=== PATIENT | male | born 1940 | race Caucasian/White ===

== ENCOUNTER → 2017-09-07 09:16 | Outpatient (CLI) | payer OTHER, MEDICARE, SELFPAY ==
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
== END ==
PROVIDERS: Family Provider Emergency Medicine; PCP Emergency Medicine; Visit Provider Emergency Medicine
DX: M54.2 Cervicalgia (principal)
CPT/HCPCS: 72050; 72141; 76376

== ENCOUNTER → 2017-09-26 09:34 | Outpatient (POV) | payer OTHER, MEDICARE, SELFPAY ==
[2017-09-26 09:50] VITALS: BP 114/47; PULSE 56; RESP 20; TEMP 36.7; O2SAT 98
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
== END ==
PROVIDERS: Family Provider Emergency Medicine; PCP Emergency Medicine; Visit Provider Clinical Nurse Specialist Family Health
DX: M50.30 Other cervical disc degeneration, unspecified cervical region (principal); M47.812 Spondylosis without myelopathy or radiculopathy, cervical region
CPT/HCPCS: 99202

== ENCOUNTER → 2017-11-01 09:46 | Outpatient (POV) | payer MEDICARE, OTHER, SELFPAY ==
[2017-11-01 10:12] VITALS: BP 106/63; PULSE 55; RESP 20; O2SAT 99; BMI 24.3
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
== END ==
PROVIDERS: Family Provider Emergency Medicine; PCP Emergency Medicine; Visit Provider Clinical Nurse Specialist Family Health
DX: M47.812 Spondylosis without myelopathy or radiculopathy, cervical region (principal)
CPT/HCPCS: 99212

== ENCOUNTER → 2017-11-08 11:35 | Outpatient (CLI) | payer MEDICARE, OTHER, SELFPAY ==
--- NOTE | 2017-11-08 11:38 | US_ITS ---
US kidney retroperitoneal comp HISTORY: ITS.REASON: RENAL CYST ORDERING PHYSICIAN: Jose De Los Santos MD PATIENT AGE: 77 years Comparison: 01/20/2017 FINDINGS: RIGHT KIDNEY:Right kidney measures 11 x 7 x 7 cm. And exophytic cyst is present along the lower pole at 17 mm there is contains a central septation. This is similar in size compared to the CT scan of 01/20/2017. No hydronephrosis LEFT KIDNEY:Left kidney measures 13 x 6 x 9 cm. Parapelvic renal cysts are present on the left measuring approximately 6 cm. There is a 5 center cyst along the lower pole on the left. These findings are similar when compared to the CT scan. No hydronephrosis. OTHER FINDINGS: No other pertinent findings IMPRESSION: Bilateral renal cysts, no hydronephrosis and no significant change from 01/20/2017
== END ==
PROVIDERS: Family Provider Emergency Medicine; PCP Emergency Medicine; Visit Provider Urology
DX: D30.01 Benign neoplasm of right kidney (principal); D30.02 Benign neoplasm of left kidney
CPT/HCPCS: 76770

== ENCOUNTER 2017-11-16 09:00 | Outpatient (RCR) | payer MEDICARE, OTHER, SELFPAY | END 2017-11-16 09:01 | disposition home or self-care (01) | LOC: PT 09:00 | PROVIDERS: Family Provider Emergency Medicine; PCP Emergency Medicine; Visit Provider Anesthesiology | DX: M54.2 Cervicalgia (principal) | CPT/HCPCS: 97012; 97014; 97035; 97110; 97140; 97163; G0283 ==

== ENCOUNTER → 2018-02-09 08:43 | Outpatient (POV) | payer MEDICARE, OTHER, SELFPAY | PROVIDERS: Visit Provider Dermatology | DX: Z00.00 Encounter for general adult medical examination without abnormal findings (principal) ==

== ENCOUNTER → 2018-02-14 09:59 | Outpatient (CLI) | payer MEDICARE, OTHER, SELFPAY ==
--- NOTE | 2018-02-14 10:04 | XR_ITS ---
XR chest 2V HISTORY: ITS.REASON: dyspnea ORDERING PHYSICIAN: Albin Ricks MD PATIENT AGE: 77 years COMPARISON: 08/11/2015 FINDINGS: The cardiomediastinal silhouette and pulmonary vascularity are within normal limits. The lungs are clear without infiltrates, suspicious nodules, or pleural effusions. No acute bony abnormalities. IMPRESSION: Negative chest, no acute finding
== END ==
PROVIDERS: Family Provider Emergency Medicine; PCP Emergency Medicine; Visit Provider Internal Medicine
DX: E78.5 Hyperlipidemia, unspecified (principal); I10 Essential (primary) hypertension; R00.1 Bradycardia, unspecified; R06.00 Dyspnea, unspecified; R42 Dizziness and giddiness; R94.31 Abnormal electrocardiogram [ECG] [EKG]
CPT/HCPCS: 71046

== ENCOUNTER → 2018-02-21 07:36 | Outpatient (CLI) | payer MEDICARE, OTHER, SELFPAY ==
--- NOTE | 2018-02-21 07:39 | CA_ITS ---
PROCEDURE: 2-D M-mode and color Doppler study INDICATIONS FOR THE TEST: Chest pain COPD Heart Murmur Tobacco Smoking+ Palpitations Fatigue Syncope Edema Hypertension+Diabetes Mellitus Rheumatic Fever SOB+NETTLES Obesity Hyperlipidemia+ Family History HD Additional History abn ekg, dizziness PATIENT INFORMATION HEIGHT: 70 WEIGHT:170 GENDER: Male B/P:133/65 2-D/M-MODE INTERPRETATION: 2-D MEASUREMENTS OBSERVED VALUES IN CMS Right Ventricular Dimension (RVDd) 1.9 Interventricular Septum (Thickness)(IVsd) 1.0 Left Ventricular Internal Dimensions(LVIDd) 5.6 Left Ventricular Posterior Wall (Thickness)(LVPWd) 0.8 Aortic Root 3.7 Aortic Cusp Separation 1.9 Left Atrial Dimensions (LAD) 3.5 2D 1. Left atrium is mildly enlarged, left ventricle is normal size, mild concentric left ventricular hypertrophy, visually estimated ejection fraction of 55% with no regional wall motion abnormality. 2. The right atrium and right ventricle are normal size and contractility. 3. The aortic valve is minimally thickened and fibrosed. 4. The mitral and tricuspid valve leaflets are minimally thickened 5. The pulmonic valve is poorly visualized. 6. No significant pericardial effusion noted. DOPPLER INTERROGATION: Doppler interrogation of the aortic, mitral and tricuspid valvular presence of mild mitral and tricuspid regurgitation, tricuspid regurgitation jet velocity is insufficient for calculation of the right ventricular systolic pressure, grade 1 diastolic dysfunction seen with tissue Doppler evidence of raised left atrial pressure. Mild aortic insufficiency is also seen. CONCLUSION: 1. Mildly enlarged left atrium, normal left ventricular size, visually estimated ejection fraction 55% with no regional wall motion abnormality, grade 1 diastolic dysfunction seen with tissue Doppler evidence of raised left atrial pressure. 2. Mild aortic, mild mitral and tricuspid regurgitation 3. No significant pericardial effusion noted.
[2018-02-21 11:49] LABS: Bilirubin,Direct 0.1 mg/dL (0.0-0.2); Total Protein,Serum 6.5 gm/dL (6.4-8.2)
[2018-02-21 12:13] LABS: Alanine Aminotransferase 23 U/L (12-78); Albumin Level 3.3 gm/dL (3.4-5.0); Alkaline Phosphatase 65 U/L (46-116); Aspartate Amino Transferase 15 U/L (15-37); Bilirubin,Indirect 0.3 mg/dL (0.0-0.9); Bilirubin,Total 0.4 mg/dL (0.2-1.0); Chol/HDL Ratio 2.6 (1-3.5); Cholesterol 156 mg/dL (140-200); HDL Cholesterol 61 mg/dL (27-67); LDL Cholesterol 84 mg/dL (0-130); Triglycerides 55 mg/dL (30-200); VLDL Cholesterol 11 mg/dL (0-40)
== END ==
PROVIDERS: PCP Emergency Medicine; Visit Provider Internal Medicine
DX: R94.31 Abnormal electrocardiogram [ECG] [EKG] (principal); E78.5 Hyperlipidemia, unspecified; I10 Essential (primary) hypertension; R00.1 Bradycardia, unspecified; R06.00 Dyspnea, unspecified; R42 Dizziness and giddiness
CPT/HCPCS: 36415; 80061; 80076; 93306

== ENCOUNTER → 2018-10-18 06:18 | Outpatient (CLI) | payer MEDICARE, OTHER, SELFPAY ==
--- NOTE | 2018-10-18 06:23 | NM_ITS ---
SPECT MYOCARDIAL PERFUSION SCAN, REST AND STRESS: EXERCISE STRESS: [facility] REVIEW QGS EF AND WALL MOTION EVALUATION: QPS - PERFUSION EVALUATION: HISTORY: SOA PROCEDURE: Rest imaging performed after administration of10.24 millicuries Tc MIBI. Dose administered at6:30 a.m., with imaging thereafter. Stress imaging was then performed following9 minutes 48 seconds of exercise stress. The patient achieved a heart [id number] with projected heart rate of122 . Resting BP156/77 with stress 194/74. At maximum exercise stress,32.2 millicuries Tc MIBI administered at8:20 a.m. with [id number] minutes thereafter. FINDINGS: Perfusion Evaluation: The single slice spect images as well as the [facility] bull's-eye data summary were reviewed. Wall Motion and Ejection Fraction Evaluation: Gated SPECT review and analysis used to evaluate these features. There is a 49 % left ventricular ejection fraction. There seems to be good wall motion Uniform myocardial activity at both stress and rest gated images calculated ejection fraction of 49% with normal wall motion IMPRESSION: No scintigraphic evidence of exercise-induced myocardial ischemia with normal ejection fraction and normal wall motion
--- NOTE | 2018-10-18 07:04 | HMH.ITSHM ---
Current Home Medications as stated by this patient Giancarlo Rodriguez or c s s representative. []ALIGN ASA ATORVASTATIN FIBERCON GLUCOSAMINE IBEROGAST IRON L-THYROXIN MAGNESIUM PRILOSEC
[2018-10-18 10:35] LABS: Basophils % 0.6 % (0.1-2.0); Eosinophils # 0.2 K/mm3 (0.0-0.4); Eosinophils % 3.1 % (0.1-12.0); Hematocrit 41.3 % (42.0-52.0); Hemoglobin 13.5 g/dL (14.1-18.0); Lymphocytes # 1.8 K/mm3 (0.7-4.5); Lymphocytes % 33.3 % (10-50); Mean Corpuscular HGB Conc 32.7 g/dL (31.8-35.4); Mean Corpuscular Hemoglobin 30.2 pg (27.0-31.2); Mean Corpuscular Volume 92.4 fl (80-94); Mean Platelet Volume 7.9 fl (7.4-10.4); Monocytes # 0.4 K/mm3 (0.1-1.0); Monocytes % 7.1 % (1.7-9.3); Neutrophils % 55.9 % (37.0-80.0); Platelet Count 215 K/mm3 (142-424); Red Blood Count 4.47 M/mm3 (4.60-6.20); Red Cell Distribution Width 13.6 % (11.5-17.5); White Blood Count 5.3 K/mm3 (4.8-10.8)
[2018-10-18 10:44] LABS: Alanine Aminotransferase 32 U/L (12-78); Albumin Level 3.7 gm/dL (3.4-5.0); Alkaline Phosphatase 61 U/L (46-116); Anion Gap 11.4 mEq/L (5-15); Aspartate Amino Transferase 19 U/L (15-37); Bilirubin,Direct 0.1 mg/dL (0.0-0.2); Bilirubin,Indirect 0.4 mg/dL (0.0-0.9); Bilirubin,Total 0.5 mg/dL (0.2-1.0); Blood Urea Nitrogen 30 mg/dL (7-18); Calcium 9.3 mg/dL (8.5-10.1); Carbon Dioxide 29 mmol/L (21.0-32.0); Chloride 103 mmol/L (98-107); Cholesterol 182 mg/dL (140-200); Creatinine,Serum 1.58 mg/dL (0.70-1.30); Estimated Glomerular Filt Rate 43 ml/min (>60); Free T4 (Free Thyroxine) 0.94 ng/dl (0.76-1.46); GFR (African American) 52 ML/MIN (>60); Glucose 98 mg/dL (74-106); HDL Cholesterol 61 mg/dL (27-67); LDL Cholesterol 108 mg/dL (0-130); Potassium 5.4 mmoL/L (3.5-5.1); Sodium 138 mmol/L (136-145); Thyroid Stimulating Hormone 3.67 uIU/ml (0.358-3.740); Total Protein,Serum 7.4 gm/dL (6.4-8.2); Triglycerides 67 mg/dL (30-200); VLDL Cholesterol 13 mg/dL (0-40)
== END ==
PROVIDERS: PCP Emergency Medicine; Visit Provider Nurse Practitioner Family
DX: E78.2 Mixed hyperlipidemia (principal); I10 Essential (primary) hypertension; R00.1 Bradycardia, unspecified; R06.09 Other forms of dyspnea; R94.31 Abnormal electrocardiogram [ECG] [EKG]; R06.02 Shortness of breath
CPT/HCPCS: 36415; 78452; 80048; 80061; 80076; 84439; 84443; 85025; 93017; A9502

== ENCOUNTER → 2018-10-25 07:13 | Outpatient (CLI) | payer MEDICARE, OTHER, SELFPAY ==
[2018-10-25 10:15] LABS: Anion Gap 14.5 mEq/L (5-15); Blood Urea Nitrogen 25 mg/dL (7-18); Carbon Dioxide 26 mmol/L (21.0-32.0); Chloride 103 mmol/L (98-107); Creatine Kinase 85 U/L (39-308); Creatinine,Serum 1.62 mg/dL (0.70-1.30); Estimated Glomerular Filt Rate 42 ml/min (>60); GFR (African American) 50 ML/MIN (>60); Potassium 4.5 mmoL/L (3.5-5.1); Sodium 139 mmol/L (136-145)
[2018-10-25 10:28] LABS: Calcium 9.2 mg/dL (8.5-10.1); Glucose 103 mg/dL (74-106)
== END ==
PROVIDERS: Visit Provider Internal Medicine
DX: M62.82 Rhabdomyolysis; R00.1 Bradycardia, unspecified; E78.5 Hyperlipidemia, unspecified; I10 Essential (primary) hypertension; R06.09 Other forms of dyspnea; R94.31 Abnormal electrocardiogram [ECG] [EKG]; Z87.891 Personal history of nicotine dependence
CPT/HCPCS: 36415; 80048; 82550

== ENCOUNTER → 2018-11-02 08:02 | Outpatient (CLI) | payer MEDICARE, OTHER, SELFPAY ==
--- NOTE | 2018-11-02 08:06 | AS_ITS ---
Renal Arterial Duplex Indications: 405.91 Unspecified renovascular hypertension. Elevated kidney function. IMPRESSIONS Normal bilateral renal artery evaluation. Complete renal arterial duplex. Duplex scan and Doppler flow study including spectral analysis, color and macias scale imaging. Height: Height: 177.8cm. Height: 70in. Weight: Weight: 77.1kg. Weight: 169.6lb. Body mass index: BMI: 24.4kg/m^2. Body surface area: BSA: 1.96m^2. Location: Vascular laboratory. Patient status: Outpatient. Findings: Cyst in the right mid pole cortex. Dimensions: 2cm (L). Cyst in the right upper pole cortex. Dimensions: 2cm (L). Cyst in the left lower pole cortex. Dimensions: 6cm (L). Cyst in the left mid pole cortex. Dimensions: 4cm (L). Tables: Arterial flow: + +--------+--------+ Location V sys V ed + +--------+--------+ Right renal - proximal 127cm/s 27.4cm/s + +--------+--------+ Right renal - mid 94.3cm/s 27.9cm/s + +--------+--------+ Right renal - distal 67.2cm/s 15.3cm/s + +--------+--------+ Left renal - proximal 80.4cm/s 20.1cm/s + +--------+--------+ Left renal - mid 80.4cm/s 18.4cm/s + +--------+--------+ Left renal - distal 90.8cm/s 19.1cm/s + +--------+--------+ Right renal-origin 124cm/s 28.4cm/s + +--------+--------+ Left renal-origin 81.3cm/s 16.6cm/s + +--------+--------+ Aorta-prox 102cm/s -------- + +--------+--------+ Renal anatomy: + +------+------+ Left Right + +------+------+ Long axis 10.2cm 10.2cm + +------+------+ Short axis 6.6cm 6.6cm + +------+------+ Velocity ratios: + +-----+ V sys + +-----+ Right renal/aortic 1.2 + +-----+ Left renal/aortic 0.9 + +-----+ (Report amended ) Electronically signed by: Chaparro Dowd [id number]
[2018-11-02 10:20] LABS: Erythrocyte Sedimentation Rate 39 mm/hr (0-20)
[2018-11-03 14:26] LABS: Anti-Centromere B Antibodies <0.2 AI (0.0-0.9); Anti-Jo-1 <0.2 AI (0.0-0.9); Anti-Smith Antibody <0.2 AI (0.0-0.9); Antichromatin Antibodies <0.2 AI (0.0-0.9); Antiscleroderma-70 Antibodies <0.2 AI (0.0-0.9); RNP Antibodies <0.2 AI (0.0-0.9); Sjogren's Anti-SS-A <0.2 AI (0.0-0.9); Sjogren's Anti-SS-B <0.2 AI (0.0-0.9)
[2018-11-03 18:44] LABS: Anti-DNA (DS) Ab Qn <1 IU/mL (0-9)
== END ==
PROVIDERS: Internal Medicine; PCP Emergency Medicine; Visit Provider Internal Medicine Cardiovascular Disease
DX: I15.0 Renovascular hypertension (principal); I11.9 Hypertensive heart disease without heart failure; E78.5 Hyperlipidemia, unspecified; R00.1 Bradycardia, unspecified; R06.09 Other forms of dyspnea; R94.31 Abnormal electrocardiogram [ECG] [EKG]
CPT/HCPCS: 36415; 85651; 86225; 86235; 93976

== ENCOUNTER → 2018-11-03 08:35 | Outpatient (CLI) | payer MEDICARE, OTHER, SELFPAY ==
[2018-11-03 10:16] LABS: Total Volume,Urine 950 mL (250-2400)
[2018-11-03 10:21] LABS: Total Protein 24 Hour,Urine 208 mg/24 hr (40-90); Total Protein,Urine Random 21.9 mg/dL (0.0-11.9)
== END ==
PROVIDERS: Visit Provider Internal Medicine
DX: R06.00 Dyspnea, unspecified (principal); R42 Dizziness and giddiness; R00.1 Bradycardia, unspecified; I10 Essential (primary) hypertension; E78.5 Hyperlipidemia, unspecified; R94.31 Abnormal electrocardiogram [ECG] [EKG]; I51.89 Other ill-defined heart diseases
CPT/HCPCS: 84155

== ENCOUNTER → 2018-11-07 10:51 | Outpatient (CLI) | payer MEDICARE, OTHER, SELFPAY ==
--- NOTE | 2018-11-07 10:53 | US_ITS ---
US Kidney CLINICAL INDICATION: Follow-up renal cyst ITS.REASON: N28.1 Cyst of kidney, acquired ORDERING PHYSICIAN: Jose De Los Santos MD PATIENT AGE: 78 years Comparison: 11/08/2017 FINDINGS: The right kidney is 11 x 6 x 5 cm. There is a negative phytic cyst along the lower pole the right kidney at 17 mm unchanged. 16 mm hypoechoic areas noted along the upper pole of the right kidney. This is not as well demonstrated. The left kidney measures 11 x 6 x 7 cm. There is a 4 cm parapelvic renal cyst, a 3 cm parapelvic renal cyst, and a 5 similar cyst along the lower pole the left kidney. There is some minimal dilatation of the left renal collecting system. The findings are overall not significant change. IMPRESSION: 1. Overall no significant change in the right renal cyst. 2. No change in the left parapelvic and lower pole cortical cyst with mild left hydronephrosis
== END ==
PROVIDERS: PCP Emergency Medicine; Visit Provider Urology
DX: N28.1 Cyst of kidney, acquired (principal)
CPT/HCPCS: 76770

== ENCOUNTER → 2018-11-14 12:28 | Outpatient (CLI) | payer MEDICARE, OTHER, SELFPAY ==
[2018-11-14 13:54] LABS: Anion Gap 12.9 mEq/L (5-15); Blood Urea Nitrogen 29 mg/dL (7-18); Calcium 8.7 mg/dL (8.5-10.1); Carbon Dioxide 26 mmol/L (21.0-32.0); Chloride 106 mmol/L (98-107); Creatinine,Serum 1.57 mg/dL (0.70-1.30); Estimated Glomerular Filt Rate 43 ml/min (>60); GFR (African American) 52 ML/MIN (>60); Glucose 85 mg/dL (74-106); Potassium 4.9 mmoL/L (3.5-5.1); Sodium 140 mmol/L (136-145)
[2018-11-14 14:11] LABS: Prostate Specific Ag Screen 1.5 ng/mL (0.0-4.0)
== END ==
PROVIDERS: Internal Medicine; Visit Provider Urology
DX: E78.5 Hyperlipidemia, unspecified (principal); I10 Essential (primary) hypertension; R00.1 Bradycardia, unspecified; R06.00 Dyspnea, unspecified; R42 Dizziness and giddiness; R94.31 Abnormal electrocardiogram [ECG] [EKG]; Z12.5 Encounter for screening for malignant neoplasm of prostate; N40.0 Benign prostatic hyperplasia without lower urinary tract symptoms
CPT/HCPCS: 36415; 80048; G0103

== ENCOUNTER → 2019-04-26 13:29 | Outpatient (CLI) | payer MEDICARE, OTHER, SELFPAY ==
[2019-04-26 14:01] LABS: Basophils % 0.4 % (0.1-2.0); Eosinophils # 0.2 K/mm3 (0.0-0.4); Eosinophils % 3.3 % (0.1-12.0); Hematocrit 40.5 % (42.0-52.0); Hemoglobin 13.1 g/dL (14.1-18.0); Lymphocytes # 1.7 K/mm3 (0.7-4.5); Lymphocytes % 31.1 % (10-50); Mean Corpuscular HGB Conc 32.4 g/dL (31.8-35.4); Mean Corpuscular Hemoglobin 30.9 pg (27.0-31.2); Mean Corpuscular Volume 95.3 fl (80-94); Mean Platelet Volume 9.1 fl (7.4-10.4); Monocytes # 0.5 K/mm3 (0.1-1.0); Monocytes % 8.8 % (1.7-9.3); Neutrophils # 3.1 K/mm3 (1.8-7.8); Neutrophils % 56.4 % (37.0-80.0); Platelet Count 254 K/mm3 (142-424); Red Blood Count 4.25 M/mm3 (4.60-6.20); Red Cell Distribution Width 13.6 % (11.5-17.5); White Blood Count 5.5 K/mm3 (4.8-10.8)
[2019-04-26 14:35] LABS: Alanine Aminotransferase 35 U/L (12-78); Albumin Level 3.7 gm/dL (3.4-5.0); Alkaline Phosphatase 58 U/L (46-116); Anion Gap 13.3 mEq/L (5-15); Aspartate Amino Transferase 23 U/L (15-37); Bilirubin,Total 0.7 mg/dL (0.2-1.0); Blood Urea Nitrogen 30 mg/dL (7-18); Calcium 9.5 mg/dL (8.5-10.1); Carbon Dioxide 27 mmol/L (21.0-32.0); Chloride 104 mmol/L (98-107); Chol/HDL Ratio 2.7 (1-3.5); Cholesterol 165 mg/dL (140-200); Creatinine,Serum 1.61 mg/dL (0.70-1.30); Estimated Glomerular Filt Rate 42 ml/min (>60); Free T4 (Free Thyroxine) 1.14 ng/dl (0.76-1.46); GFR (African American) 51 ML/MIN (>60); Globulin 3.6 gm/dl (1.3-3.2); HDL Cholesterol 62 mg/dL (27-67); LDL Cholesterol 89 mg/dL (0-130); Potassium 5.3 mmoL/L (3.5-5.1); Sodium 139 mmol/L (136-145); Thyroid Stimulating Hormone 3.21 uIU/ml (0.358-3.740); Total Protein,Serum 7.3 gm/dL (6.4-8.2); Triglycerides 71 mg/dL (30-200); VLDL Cholesterol 14 mg/dL (0-40)
[2019-04-26 14:54] LABS: Glucose 100 mg/dL (74-106)
[2019-04-27 09:17] LABS: Vitamin D 25 Hydroxy 54.3 ng/mL (30.0-100.0)
== END ==
PROVIDERS: Visit Provider Nurse Practitioner Family
DX: R53.83 Other fatigue (principal); Z09 Encounter for follow-up examination after completed treatment for conditions other than malignant neoplasm; M47.812 Spondylosis without myelopathy or radiculopathy, cervical region; K59.00 Constipation, unspecified; E03.9 Hypothyroidism, unspecified
CPT/HCPCS: 80053; 80061; 82652; 84439; 84443; 85025

== ENCOUNTER → 2019-10-17 07:36 | Outpatient (CLI) | payer MEDICARE, OTHER, SELFPAY ==
[2019-10-17 07:45] LABS: Microscopic, Urine URINE MICROSCOPIC (MICROSCOPIC)
[2019-10-17 08:16] LABS: Basophils % 0.3 % (0.1-2.0); Eosinophils # 0.2 K/mm3 (0.0-0.4); Eosinophils % 2.3 % (0.1-12.0); Hematocrit 35.5 % (42.0-52.0); Hemoglobin 11.3 g/dL (14.1-18.0); Lymphocytes # 1.9 K/mm3 (0.7-4.5); Mean Corpuscular HGB Conc 31.7 g/dL (31.8-35.4); Mean Corpuscular Hemoglobin 28.7 pg (27.0-31.2); Mean Corpuscular Volume 90.4 fl (80-94); Mean Platelet Volume 7.7 fl (7.4-10.4); Monocytes # 0.6 K/mm3 (0.1-1.0); Monocytes % 7.6 % (1.7-9.3); Neutrophils % 64.9 % (37.0-80.0); Platelet Count 303 K/mm3 (142-424); Red Blood Count 3.93 M/mm3 (4.60-6.20); Red Cell Distribution Width 13.6 % (11.5-17.5); White Blood Count 7.7 K/mm3 (4.8-10.8)
[2019-10-17 08:46] LABS: Chloride 104 mmol/L (98-107); Potassium 4.5 mmoL/L (3.5-5.1); Sodium 137 mmol/L (136-145)
[2019-10-17 08:47] LABS: Albumin Level 3.9 g/dl (3.5-5.0)
[2019-10-17 08:49] LABS: Anion Gap 12.5 mEq/L (5-15); Blood Urea Nitrogen 32 mg/dl (9-20); Carbon Dioxide 25 mmol/L (22.0-30.0); Estimated Glomerular Filt Rate 42 ml/min (>60); GFR (African American) 51 ML/MIN (>60)
[2019-10-17 08:50] LABS: Calcium 9.6 mg/dl (8.4-10.2); Glucose 133 mg/dl (74-100)
[2019-10-17 10:22] LABS: Appearance,Urine CLEAR (Clear); Bilirubin,Urine Negative (Negative); Blood, Urine Negative (Negative); Color,Urine YELLOW (Yellow); Glucose,Urine (UA) Negative (Negative); Ketones,Urine Negative (Negative); Leukocyte Esterase,Urine Negative (Negative); Nitrate,Urine Negative (Negative); Protein,Urine Negative (Negative); Specific Gravity, Urine 1.025 (1.005-1.030); Urobilinogen,Urine 0.2 EU/dl (0.2)
[2019-10-17 10:27] LABS: Creatinine,Urine Random 177 mg/dL (Not Estab.)
[2019-10-17 10:43] LABS: Squamous Epithelial Cell,Urine Occasional #/hpf (0-5); WBC,Urine Occasional #/hpf (0-3)
[2019-10-18 11:16] LABS: Vitamin D 25 Hydroxy 50.7 ng/mL (30.0-100.0)
[2019-10-18 12:56] LABS: Parathyroid Hormone Intact 13 pg/mL (15-65)
== END ==
PROVIDERS: Visit Provider Internal Medicine Nephrology
DX: N18.3 Chronic kidney disease, stage 3 (moderate) (principal)
CPT/HCPCS: 36415; 80069; 81001; 82570; 82652; 83970; 84155; 85025

== ENCOUNTER → 2019-11-15 12:28 | Outpatient (CLI) | payer MEDICARE, OTHER, SELFPAY ==
--- NOTE | 2019-11-15 12:29 | US_ITS ---
PROCEDURE: US KIDNEY CLINICAL INDICATION: COMPARISON: KIDNEY US Kidney from 11/07/2018 FINDINGS: The right kidney is [id number]. No hydronephrosis, cortical thinning, or renal mass or perinephric fluid collection is evident. Is a 14 mm cyst in the upper pole of the right kidney unchanged. A 16 mm cyst is present along lower pole unchanged The left kidney is [id number]. There is a 6 cm cyst along lower pole. Their parapelvic renal cyst present measuring 3 and 2 cm in the upper pole and 4 cm in the lower pole with mild degree of hydronephrosis. Overall no significant change. IMPRESSION: Bilateral renal cyst with mild left hydronephrosis overall not significantly changed Dictated by: Chaparro Dowd MD 11/15/2019 16:55 Electronically signed by Chaparro Dowd MD in [place] 11/15/2019 16:55
== END ==
PROVIDERS: PCP Emergency Medicine; Visit Provider Urology
DX: N28.89 Other specified disorders of kidney and ureter (principal)
CPT/HCPCS: 76770

== ENCOUNTER → 2019-11-22 12:10 | Outpatient (CLI) | payer MEDICARE, OTHER, SELFPAY ==
[2019-11-22 13:53] LABS: Prostate Specific Ag, Diagnost 1.47 ng/ml (0.0-4.0)
== END ==
PROVIDERS: Visit Provider Urology
DX: N40.0 Benign prostatic hyperplasia without lower urinary tract symptoms (principal); Z12.5 Encounter for screening for malignant neoplasm of prostate
CPT/HCPCS: 36415; 84153

== ENCOUNTER → 2020-04-03 08:44 | Outpatient (CLI) | payer MEDICARE, OTHER, SELFPAY ==
[2020-04-03 09:22] LABS: Basophils % 0.4 % (0.1-2.0); Eosinophils # 0.1 K/mm3 (0.0-0.4); Eosinophils % 2.2 % (0.1-12.0); Hematocrit 40.3 % (42.0-52.0); Hemoglobin 13.6 g/dL (14.1-18.0); Lymphocytes # 2.3 K/mm3 (0.7-4.5); Lymphocytes % 38.5 % (10-50); Mean Corpuscular HGB Conc 33.8 g/dL (31.8-35.4); Mean Corpuscular Hemoglobin 30.6 pg (27.0-31.2); Mean Corpuscular Volume 90.7 fl (80-94); Mean Platelet Volume 7.8 fl (7.4-10.4); Monocytes # 0.5 K/mm3 (0.1-1.0); Neutrophils % 50.9 % (37.0-80.0); Platelet Count 252 K/mm3 (142-424); Red Blood Count 4.45 M/mm3 (4.60-6.20); Red Cell Distribution Width 13.5 % (11.5-17.5)
[2020-04-03 10:58] LABS: Alanine Aminotransferase 17 U/L (12-78); Alkaline Phosphatase 64 U/L (38-126); Aspartate Amino Transferase 27 U/L (17-59); Bilirubin,Direct 0.1 mg/dl (0.0-0.4); Bilirubin,Indirect 0.5 mg/dL (0.0-0.9); Bilirubin,Total 0.6 mg/dl (0.2-1.3); Bilirubin,Unconjugated 0.5 mg/dL (0.0-1.1); Blood Urea Nitrogen 25 mg/dl (9-20); Calcium 9.7 mg/dl (8.4-10.2); Carbon Dioxide 28 mmol/L (22.0-30.0); Chloride 102 mmol/L (98-107); Chol/HDL Ratio 2.9 (1-3.5); Cholesterol 164 mg/dl (140-200); Estimated Glomerular Filt Rate 45 ml/min (>60); GFR (African American) 55 ML/MIN (>60); Glucose 96 mg/dl (74-100); HDL Cholesterol 57 mg/dl (40-60); Sodium 137 mmol/L (136-145); Total Protein,Serum 7.1 g/dl (6.3-8.2); Triglycerides 78 mg/dl (30-150); VLDL Cholesterol 16 mg/dL (0-40)
[2020-04-03 11:10] LABS: Direct LDL Cholesterol 79.54 mg/dL (100-129)
[2020-04-03 11:15] LABS: Free T4 (Free Thyroxine) 1.09 ng/dl (0.78-2.19)
[2020-04-03 11:29] LABS: Thyroid Stimulating Hormone 2.91 uIU/mL (0.465-4.68)
== END ==
PROVIDERS: Visit Provider Nurse Practitioner Family
DX: E78.2 Mixed hyperlipidemia (principal); I10 Essential (primary) hypertension; R00.1 Bradycardia, unspecified; Z79.899 Other long term (current) drug therapy
CPT/HCPCS: 36415; 80048; 80061; 80076; 84439; 84443; 85025

== ENCOUNTER → 2020-05-06 08:32 | Outpatient (CLI) | payer MEDICARE, OTHER, SELFPAY ==
[2020-05-06 09:29] LABS: Basophils % 0.8 % (0.1-2.0); Eosinophils # 0.2 K/mm3 (0.0-0.4); Eosinophils % 3.2 % (0.1-12.0); Hematocrit 39.6 % (42.0-52.0); Hemoglobin 13.2 g/dL (14.1-18.0); Lymphocytes # 2.2 K/mm3 (0.7-4.5); Lymphocytes % 42.2 % (10-50); Mean Corpuscular HGB Conc 33.4 g/dL (31.8-35.4); Mean Corpuscular Hemoglobin 30.8 pg (27.0-31.2); Mean Corpuscular Volume 92.1 fl (80-94); Mean Platelet Volume 8.9 fl (7.4-10.4); Monocytes # 0.5 K/mm3 (0.1-1.0); Monocytes % 8.4 % (1.7-9.3); Neutrophils # 2.4 K/mm3 (1.8-7.8); Neutrophils % 45.3 % (37.0-80.0); Platelet Count 257 K/mm3 (142-424); Red Cell Distribution Width 13.3 % (11.5-17.5); White Blood Count 5.3 K/mm3 (4.8-10.8)
[2020-05-06 09:36] LABS: Creatinine,Urine Random 144 mg/dL (Not Estab.)
[2020-05-06 09:47] LABS: Microalbumin < 6.000 mg/L (0-16.7)
[2020-05-06 10:43] LABS: Albumin Level 3.9 g/dl (3.5-5.0); Chloride 104 mmol/L (98-107); Potassium 4.5 mmoL/L (3.5-5.1); Sodium 138 mmol/L (136-145)
[2020-05-06 10:46] LABS: Blood Urea Nitrogen 26 mg/dl (9-20); Calcium 9.2 mg/dl (8.4-10.2); Estimated Glomerular Filt Rate 39 ml/min (>60); GFR (African American) 48 ML/MIN (>60); Glucose 100 mg/dl (74-100); Iron 73 ug/dL (49-181); Phosphorous 4.4 mg/dl (2.5-4.5)
[2020-05-06 10:55] LABS: Total Iron Binding Capacity 276 ug/dL (261-462)
[2020-05-06 11:21] LABS: Ferritin 174 ng/ml (17.9-464)
[2020-05-06 17:36] LABS: Anion Gap 10.5 mEq/L (5-15); Carbon Dioxide 28 mmol/L (22.0-30.0)
[2020-05-06 17:46] LABS: Uric Acid 6.3 mg/dl (3.5-8.5)
== END ==
PROVIDERS: Visit Provider Internal Medicine Nephrology
DX: N18.30 Chronic kidney disease, stage 3 unspecified (principal); D64.9 Anemia, unspecified
CPT/HCPCS: 36415; 80069; 82043; 82570; 82728; 83540; 83550; 84155; 84550; 85025

== ENCOUNTER → 2020-05-12 12:37 | Outpatient (POV) | payer MEDICARE, OTHER, SELFPAY | PROVIDERS: Visit Provider Internal Medicine Nephrology | DX: Z00.00 Encounter for general adult medical examination without abnormal findings (principal) ==

== ENCOUNTER → 2020-11-07 08:14 | Outpatient (CLI) | payer MEDICARE, OTHER, SELFPAY ==
[2020-11-07 10:53] LABS: Prostate Specific Ag, Diagnost 2.83 ng/ml (0.0-4.0)
== END ==
PROVIDERS: Visit Provider Urology
DX: N18.9 Chronic kidney disease, unspecified (principal); N40.0 Benign prostatic hyperplasia without lower urinary tract symptoms
CPT/HCPCS: 84153

== ENCOUNTER → 2020-11-10 12:32 | Outpatient (POV) | payer MEDICARE, OTHER, SELFPAY ==
[2020-11-10 14:46] LABS: Albumin Level 3.8 g/dl (3.5-5.0); Anion Gap 9.6 mEq/L (5-15); Blood Urea Nitrogen 29 mg/dl (9-20); Calcium 8.8 mg/dl (8.4-10.2); Carbon Dioxide 25 mmol/L (22.0-30.0); Chloride 108 mmol/L (98-107); Estimated Glomerular Filt Rate 45 ml/min (>60); GFR (African American) 55 ML/MIN (>60); Glucose 94 mg/dl (74-100); Potassium 4.6 mmoL/L (3.5-5.1); Sodium 138 mmol/L (136-145)
[2020-11-10 15:00] LABS: 25-OH Vitamin D, Total 45.3 ng/mL (30-100)
[2020-11-10 15:32] LABS: Microalbumin/Creatinine Ratio 3.2
[2020-11-10 15:35] LABS: Creatinine,Urine Random 186 mg/dL (Not Estab.)
[2020-11-12 14:16] LABS: Calcium, Ionized 5.1 mg/dL (4.5-5.6)
== END ==
PROVIDERS: Visit Provider Internal Medicine Nephrology
DX: N28.89 Other specified disorders of kidney and ureter (principal)
CPT/HCPCS: 36415; 80069; 82043; 82306; 82330; 82570; 83970

== ENCOUNTER → 2020-11-14 12:47 | Outpatient (CLI) | payer MEDICARE, OTHER, SELFPAY ==
--- NOTE | 2020-11-14 12:48 | US_ITS ---
PROCEDURE: US KIDNEY CLINICAL INDICATION: N28.89 - Other specified disorders of kidney and ureter COMPARISON: US KIDNEY US Kidney from 11/07/2018 US US KIDNEY from 11/15/2019 FINDINGS: The right kidney is [id number]. In the upper pole of the right kidney there is a 1.6 cm 1.5 cm cyst. In the lower pole there is a 1.9 cm exophytic cyst. The left kidney is [id number]. Left-sided hydronephrosis noted as before. There are numerous left renal cyst as well with suspected parapelvic cysts at 3.7 cm and a 6 cm cyst arising from the lower pole of the left kidney. IMPRESSION: Overall no significant change bilateral renal cysts and left hydronephrosis Dictated by: Chaparro Dowd MD 11/14/2020 15:01 Chaparro Dowd MD in [place] 11/14/2020 15:01
== END ==
PROVIDERS: PCP Emergency Medicine; Visit Provider Urology
DX: N28.89 Other specified disorders of kidney and ureter (principal)
CPT/HCPCS: 76770

== ENCOUNTER 2021-02-21 11:20 | Emergency (ER) | payer MEDICARE, OTHER, SELFPAY ==
--- NOTE | 2021-02-21 12:32 | HMH.EDUTC ---
[facility] [place] Clinical Impression: Exposure to COVID-19 virus Disposition: Home, Self-Care Condition on Discharge: Good Instructions: DI for COVID-19 (Suspected or Confirmed ), Preventing the Spread of Coronavirus Discharge Instructions Additional Instructions: Drink plenty of fluids. Take tylenol for pain or fever. Return if you begin to have difficulty breathing. Follow up with your regular doctor. GO TO THE ER FOR ANY WORSENING SYMPTOMS Quarantine until you know the results of your covid-19 test. If it is positive, the health department should call you and give you further instructions about your length of Quarantine and other things. Notify your school or workplace of your results and follow their instructions regarding return to work/school. Referrals: Washington Jacobo MD [Primary Care Provider] - Time of Disposition: 12:33 Medical Decision Making - Medical Records Medical records reviewed: No: I reviewed the patient's medical records. - Arie Inquiry Pt receiving controlled substance: No Vital Signs: 02/21/21 12:42 02/21/21 12:45 Temperature 97.1 F L 97.1 F L Temperature Source Oral Oral Pulse Rate 56 L Pulse Rate [Apical] 56 L Respiratory Rate 18 18 Blood Pressure 138/70 Blood Pressure [Right Arm] 138/70 Blood Pressure Mean [Right Arm] 92 Blood Pressure Source Automatic Cuff Blood Pressure Source [Right Arm] Automatic Cuff Blood Pressure Position Sitting Blood Pressure Position [Right Arm] Sitting 02 Sat by Pulse Oximetry 100 Oxygen Delivery Method Room Air Room Air [facility] [place] H[place] - General Stated complaint: covid test, exposure Time Seen by Provider: 02/21/21 12:45 - History of Present Illness Provider Complaint: He has been exposed to covid19. HE denies any symptoms. - Related Data Home Medications Medication Instructions Recorded Confirmed Bifidobacterium infantis 4 mg 4 mg PO QHS 08/22/17 12/11/20 capsule aspirin 81 mg tablet,delayed 81 mg PO DAILY tab 08/22/17 12/11/20 release ferrous sulfate 325 mg (65 mg 325 mg PO DAILY tab 08/22/17 12/11/20 iron) tablet glucosamine sulfate 500 mg tablet 500 mg PO BID 11/15/17 12/11/20 magnesium 250 mg tablet 250 mg PO DAILY PRN tab 10/09/18 12/11/20 loratadine 10 mg tablet 10 mg PO DAILY PRN tab 04/01/20 12/11/20 Previous Rx's Medication Instructions Recorded atorvastatin 20 mg tablet 20 mg PO DAILY #90 tab 04/01/20 levothyroxine 25 mcg tablet See Rx Instructions .ROUTE 05/19/20 .COMPLEX #90 tab naproxen 500 mg tablet 500 mg PO BID #30 tab 05/22/20 prednisone 20 mg tablet 20 mg PO BID 5 Days #10 tab 05/22/20 omeprazole 20 mg capsule,delayed See Rx Instructions .ROUTE 12/22/20 release .COMPLEX #90 cap ramipril 5 mg capsule See Rx Instructions .ROUTE 12/22/20 .COMPLEX #90 cap Allergies Allergy/AdvReac Type Severity Reaction Status Date / Time No Known Allergies Allergy Verified 12/11/20 14:09 [facility] History - Hepatitis A Screen Attestation statement:: This patient has been screened for Hepatitis A risk factors. I have reviewed the patient's past medical history: Yes Medical History: Reports:: Cancer, Hyperlipidemia, Hypertension, Myocardial Infarction Denies:: Diabetes Mellitus Type 1, Diabetes Mellitus Type 2 Other Medical History: Reports: Arthritis, Hypothyroidism, Thyroid Disease Comment: Sexual Dysfunction Other Surgeries: Yes: No Previous Surgery, Colonoscopy, Other Amputation: No Fractures: No - Social History Smoking Status: Former smoker Tobacco Type: cigarettes # Packs/Day (cigarettes): 2 Alcohol Intake: current Alcohol Intake Frequency:: 0-2 drinks per day Substance Use Type: denies use Occupational Status: retired Housing: house Household Members: spouse Family Hx:: Cancer Comment: Arthritis, Glaucoma ROS Obtained: Yes All systems reviewed & no additional complaints - Constitutional Constitutional: Reports system reviewed and no additional complaint
[2021-02-21 12:42] VITALS: BP 138/70; PULSE 56; RESP 18; TEMP 36.2; O2SAT 100; BMI 23.2
[2021-02-21 12:45] VITALS: BP 138/70; PULSE 56; RESP 18; TEMP 36.2; O2SAT 100
== END 2021-02-21 12:45 | disposition home or self-care (01) ==
PROVIDERS: Emergency Provider Nurse Practitioner Family; PCP Emergency Medicine
DX: Z20.822 Contact with and (suspected) exposure to COVID-19 (principal)
CPT/HCPCS: 99202; C9803; G0463; U0003; U0005

== ENCOUNTER → 2021-04-20 09:34 | Outpatient (CLI) | payer MEDICARE, OTHER, SELFPAY ==
--- NOTE | 2021-04-20 09:35 | CA_ITS ---
APPROVED REPORT EXAM: Comprehensive 2D, Doppler, and color-flow Echocardiogram Multimedia Coordinator: Kat Mcclain CRT Ht: 5 ft 10 in Wt: 164lbs BSA: 1.92 BP: 138/72 mmHg Indications: Hyperlipidemia, Hypertension/HDD, bradycardia 2D Dimensions LVOT 2.04 cm (M/F) 1.5-2.5 LA Volume 40.00 mL LA Volume Index 20.80 mL/m2 (M/F) 16-34 M-Mode Dimensions RVDd 2.66 cm (0.9-2.6) LA Diam 3.54 cm (1.9-4.0) LVDd 5.82 cm (3.5-5.7) Ao Diam 4.43 cm (2.0-3.7) LVDs 3.33 cm (3.5-5.7) IVSd 1.28 cm (0.6-1.1) PWd 0.74 cm (0.6-1.1) EF (Teich) 73.10% FS 42.80% EDV (Teich) 167.90 mL ESV (Teich) 45.10 mL LV Diastology E Decel Time 327.00 (160-240 msec) E/A Ratio 0.61 MED E' 4.40 (< 7 cm/sec) MED A' 8.20 cm/s E'/MED E' Ratio 10.77 (>14) LAT E' 9.00 (<10 cm/sec) LAT A' 13.20 cm/s E/LAT E' Ratio 5.27 (>14) Aortic Valve AI PHT 538.00 ms AO Peak GR. 4.90 mmHg Mitral Valve MV E Max Eulogio. 47.00 (40-130 cm/s) MV A Velocity 78.00 (40-130 cm/s) E/A Ratio 0.61 MV Decel. Time 327.00 (160-240 ms) MV PHT 96.00 ms Pulmonary Valve PV Peak Velocity 152.00 (50-150 cm/s) Tricuspid Valve TR P. Velocity 185.00 cm/s RAP Estimate 10.00 mmHg RVSP 23.70 mmHg Left Ventricle Left atrium is mildly enlarged, left ventricle is normal size, mild concentric left ventricular hypertrophy, visually estimated ejection fraction 55% with no regional wall motion abnormality, grade 1 diastolic dysfunction seen without tissue Doppler evidence of raise left atrial pressure. Right Ventricle Right atrium and right ventricle are normal size and contractility. Aortic Valve Aortic valve is minimally thickened and fibrosed, there is no aortic stenosis, there is trace aortic insufficiency. Mitral Valve Mitral valve grossly normal, there is trace mitral regurgitation. Tricuspid Valve Tricuspid valve grossly normal, there is trace tricuspid regurgitation, tricuspid regurgitation jet velocity is inadequate for calculation of the right ventricular systolic pressure. Pulmonic Valve Pulmonic valve is poorly visualized. Great Vessels Aortic root is normal size. Inferior vena cava is not visualized. Pericardium No significant pericardial effusion noted. Conclusion 1. Mildly enlarged left atrium, normal left ventricular size, mild concentric left ventricular hypertrophy, visually estimated ejection fraction 55% with no regional wall motion abnormality, grade 1 diastolic dysfunction seen without tissue Doppler evidence of raise left atrial pressure. 2. Trace aortic, mitral and tricuspid regurgitation. 3. No significant pericardial effusion noted 4. Inferior vena cava is not visualized. Electronically signed by : Christopher Trinidad MD 04/20/2021 20:36:02
[2021-04-20 11:38] LABS: Alanine Aminotransferase 15 U/L (12-78); Alkaline Phosphatase 53 U/L (38-126); Aspartate Amino Transferase 26 U/L (17-59); Bilirubin,Direct 0.1 mg/dl (0.0-0.4); Bilirubin,Indirect 0.4 mg/dL (0.0-0.9); Bilirubin,Total 0.5 mg/dl (0.2-1.3); Bilirubin,Unconjugated 0.4 mg/dL (0.0-1.1); Chol/HDL Ratio 2.8 (1-3.5); Cholesterol 152 mg/dl (140-200); HDL Cholesterol 55 mg/dl (40-60); Total Protein,Serum 7.2 g/dl (6.3-8.2); Triglycerides 128 mg/dl (30-150); VLDL Cholesterol 26 mg/dL (0-40)
[2021-04-20 11:55] LABS: Direct LDL Cholesterol 66.65 mg/dL (100-129)
== END ==
PROVIDERS: PCP Emergency Medicine; Visit Provider Urology
DX: I51.89 Other ill-defined heart diseases; R00.1 Bradycardia, unspecified; E78.2 Mixed hyperlipidemia
CPT/HCPCS: 36415; 80061; 80076; 93306

== ENCOUNTER → 2021-10-14 08:55 | Outpatient (CLI) | payer MEDICARE, OTHER, SELFPAY ==
--- NOTE | 2021-10-14 09:09 | XR_ITS ---
FINAL REPORT TECHNIQUE: Bone mineral density was calculated of the lumbar spine and hip. CLINICAL HISTORY: . osteoporosis FINDINGS: DEXA BONE DENSITY AXIAL SKELETON Using L1-4, the bone mineral density of the spine is 1.392 g/cm2, corresponding to T-score of 2.7. These values are likely falsely elevated secondary to hypertrophic changes. Using the left hip, the bone mineral density of the femoral neck is 0.772 g/cm2, corresponding to a T-score of -1.2. NOTE: T-score: Standard deviation compared with peak bone mass of young adult mean. *Following the recommendations of the International Society of Bone densitometry, classification of hip BMD is based on the lower of two T-scores; total hip or femoral neck. IMPRESSION: Diminished bone mineral density of the lumbar spine and left hip consistent with osteopenia. FRAX 10 year fracture risk is 6.6 % for major osteoporotic fracture. Reviewed, Interpreted and Dictated by Warren Gupta III, MD Transcribed by Ekaterina Daily Authenticated by Warren Gupta III, MD on 10/14/2021 11:15:47 AM [facility]
== END ==
PROVIDERS: PCP Emergency Medicine; Visit Provider Internal Medicine Nephrology
DX: M81.0 Age-related osteoporosis without current pathological fracture (principal)
CPT/HCPCS: 77080

== ENCOUNTER → 2021-12-17 08:21 | Outpatient (CLI) | payer MEDICARE, OTHER, SELFPAY ==
[2021-12-17 09:02] LABS: Basophils # 0.1 K/mm3 (0-0.2); Basophils % 0.6 % (0.1-2.0); Eosinophils # 0.2 K/mm3 (0.0-0.4); Eosinophils % 2.9 % (0.1-12.0); Hematocrit 40.2 % (42.0-52.0); Hemoglobin 12.9 g/dL (14.1-18.0); Lymphocytes # 3.8 K/mm3 (0.7-4.5); Lymphocytes % 50.7 % (10-50); Mean Corpuscular Hemoglobin 30.7 pg (27.0-31.2); Mean Corpuscular Volume 95.9 fl (80-94); Mean Platelet Volume 8.2 fl (7.4-10.4); Monocytes # 0.5 K/mm3 (0.1-1.0); Monocytes % 6.7 % (1.7-9.3); Neutrophils % 39.1 % (37.0-80.0); Platelet Count 227 K/mm3 (142-424); Red Blood Count 4.19 M/mm3 (4.60-6.20); Red Cell Distribution Width 14.2 % (11.5-17.5); White Blood Count 7.6 K/mm3 (4.8-10.8)
[2021-12-17 09:04] LABS: MANUAL DIFFERENTIAL MANUAL DIFFERENTIAL (MANUAL DIFF)
[2021-12-17 09:18] LABS: Eosinophils % 4 % (0-3); Lymphocytes % 58 % (10-50); Monocytes % 5 % (2-9); Neutrophils % 33 % (42-76); Total Cells Counted 100
[2021-12-17 09:19] LABS: Platelet Estimate Normal; RBC Morphology Normal
[2021-12-17 09:20] LABS: Albumin Level 3.8 g/dl (3.5-5.0); Anion Gap 11.6 mEq/L (5-15); Blood Urea Nitrogen 24 mg/dl (9-20); Calcium 9.4 mg/dl (8.4-10.2); Carbon Dioxide 27 mmol/L (22.0-30.0); Chloride 102 mmol/L (98-107); Estimated Glomerular Filt Rate 53 ml/min (>60); GFR (African American) 64 ML/MIN (>60); Glucose 102 mg/dl (74-100); Phosphorous 3.9 mg/dl (2.5-4.5); Potassium 4.6 mmoL/L (3.5-5.1); Sodium 136 mmol/L (136-145)
[2021-12-17 09:36] LABS: 25-OH Vitamin D, Total 60.7 ng/mL (30-100)
[2021-12-17 12:18] LABS: Prostate Specific Ag Screen 1.7 ng/ml (0.0-4.0)
== END ==
PROVIDERS: Urology; PCP Emergency Medicine; Visit Provider Internal Medicine Nephrology
DX: Z12.5 Encounter for screening for malignant neoplasm of prostate (principal); N18.32 Chronic kidney disease, stage 3b; E55.9 Vitamin D deficiency, unspecified
CPT/HCPCS: 36415; 80069; 82306; 85007; 85025; G0103

== ENCOUNTER → 2021-12-21 10:09 | Outpatient (POV) | payer MEDICARE, OTHER, SELFPAY | PROVIDERS: Visit Provider Internal Medicine Nephrology | DX: Z00.00 Encounter for general adult medical examination without abnormal findings (principal) ==

== ENCOUNTER → 2022-03-29 10:39 | Outpatient (CLI) | payer MEDICARE, OTHER, SELFPAY | PROVIDERS: PCP Internal Medicine; Visit Provider Nurse Practitioner | DX: R00.1 Bradycardia, unspecified (principal); R42 Dizziness and giddiness | CPT/HCPCS: 93270 ==

== ENCOUNTER 2022-04-12 09:08 | Emergency (ER) | payer MEDICARE, OTHER, SELFPAY ==
[2022-04-12] VITALS (8 sets, daily range): BP systolic 143–158; BP diastolic 64–81; PULSE 43–53; RESP 18–20; TEMP 36.6; O2SAT 96–98; BMI 22.9
--- NOTE | 2022-04-12 09:18 | ECG_ITS ---
APPROVED REPORT Exam: Resting ECG HR:45 bpm ECG Measurements Heart Rate 45 AXES WA 188 P 47 QRSd 165 QRS 38 QT 474 T 46 QTc 430 Conclusion SINUS BRADYCARDIA RIGHT BUNDLE BRANCH BLOCK [120+ ms QRS DURATION, UPRIGHT V1, 40+ ms S IN I/aVL/V4/V5/V6] ST ELEVATION, CONSIDER INFERIOR INJURY [MARKED ST ELEVATION W/O NORMALLY INFLECTED T-WAVE IN II/aVF] ACUTE VT UNCONFIRMED REPORT Electronically signed by : Abimael Brenner MD 04/12/2022 21:40:02
--- NOTE | 2022-04-12 09:22 | XR_ITS ---
FINAL REPORT CLINICAL HISTORY: SOB/CP COMPARISON: 02/14/2018 FINDINGS: PORTABLE CHEST There is mild cardiomegaly. The mediastinum is unremarkable. There are mild chronic changes in both lungs. There is no pneumothorax. IMPRESSION: No acute process. Reviewed, Interpreted and Dictated by Dakota Claire MD Transcribed by Ekaterina Daily Authenticated and [facility]
--- NOTE | 2022-04-12 09:23 | HMH.EDGENADL ---
Discharge Plan Disposition Patient Disposition: Home, Self-Care Condition: Good Chief Complaint: Dizziness Prescriptions Prescriptions: No Action glucosamine sulfate [Glucosamine] 500 mg tablet 500 mg PO BID aspirin [Adult Low Dose Aspirin] 81 mg tablet,delayed release (DR/EC) 81 mg PO DAILY Bifidobacterium infantis [Align] 4 mg capsule 4 mg PO QHS magnesium 250 mg tablet 250 mg PO DAILY PRN loratadine [Allergy Relief (loratadine)] 10 mg tablet 10 mg PO DAILY PRN pseudoephedrine HCl [Sudafed] 30 mg tablet 30 mg PO Q4-6H PRN Rx Instructions: DNExceed 4 doses/24h atorvastatin 20 mg tablet 20 mg PO DAILY Qty: 90 3RF omeprazole 20 mg capsule,delayed release(DR/EC) See Rx Instructions .ROUTE .COMPLEX Qty: 90 3RF Dose Instruction: TAKE 1 CAPSULE DAILY Rx Instructions: TAKE 1 CAPSULE DAILY ramipril 5 mg capsule See Rx Instructions .ROUTE .COMPLEX Qty: 90 1RF Dose Instruction: TAKE 1 CAPSULE DAILY Rx Instructions: TAKE 1 CAPSULE DAILY Referrals Follow up/Referrals: Provider,MD Franklin [Referring] - See instructions Albin Ricks MD [Staff Physician] - 7-14 days Clinical Impressions Clinical Impression: Episodic lightheadedness Instructions Patient Instructions: Dizziness, Nonvertigo Discharge ED Provider: Jed Ward Adult HPI General Chief complaint: Dizziness Stated complaint: dizzy Time Seen by Provider: 04/12/22 09:10 Mode of Arrival: Ambulatory Source of Information: Patient Limitations: No Limitations Description of Symptoms (Recalled from ER Triage Doc. by RN): c/o lightheadness this morning. States that he couldnt sleep last night so he sat in bed for an hour reading and then when he went to get up to go to the bathroom he fell into the wall. He went to sleep and then when woke this morning he was lightheaded. Denies any slurred speech, weakness, TRAN or other symptoms at this time. PT arrives with a monitoring and evaluation advisor from home that he is wearing. History of Present Illness HPI narrative: 81-year-old male, known history of diastolic dysfunction, hypertension, hyperlipidemia, baseline bradycardia. He follows with Dr. Ricks, has been wearing monitoring and evaluation advisor for the bradycardia. He presents today with complaint of lightheadedness, states he was reading in bed and then whenever he went up to go to the bathroom, he stumbled into a wall and felt lightheaded. He denies any complete syncopal events, denies any unilateral weakness, slurred speech, facial asymmetry, headache, blurry or double vision, palpitations, chest pain or other symptoms. Currently asymptomatic while sitting in bed, normotensive with no acute complaints. Related Data Home Medications Medication Instructions Recorded Confirmed Bifidobacterium infantis 4 mg 4 mg PO QHS 08/22/17 03/29/22 capsule (Align) aspirin 81 mg tablet,delayed 81 mg PO DAILY 08/22/17 03/29/22 release (Adult Low Dose Aspirin) glucosamine sulfate 500 mg tablet 500 mg PO BID 11/15/17 03/29/22 (Glucosamine) magnesium 250 mg tablet 250 mg PO DAILY PRN 10/09/18 03/29/22 loratadine 10 mg tablet (Allergy 10 mg PO DAILY PRN 04/01/20 03/29/22 Relief (loratadine)) pseudoephedrine HCl 30 mg tablet 30 mg PO Q4-6H PRN 03/31/21 03/29/22 (Sudafed) Previous Rx's Medication Instructions Recorded omeprazole 20 mg capsule,delayed See Rx Instructions .Route 01/04/22 release .COMPLEX #90 caps ramipril 5 mg capsule See Rx Instructions .Route 01/04/22 .COMPLEX #90 caps atorvastatin 20 mg tablet 20 mg PO DAILY #90 tabs 03/29/22 Allergies Allergy/AdvReac Type Severity Reaction Status Date / Time No Known Allergies Allergy Verified 03/29/22 10:15 [facility] Medical History Diastolic dysfunction Social History Smoking Status: Never smoker alcohol intake:
[2022-04-12 09:32] LABS: Basophils # 0.1 K/mm3 (0-0.2); Basophils % 0.7 % (0.1-2.0); Eosinophils # 0.2 K/mm3 (0.0-0.4); Eosinophils % 2.3 % (0.1-12.0); Hematocrit 42.1 % (42.0-52.0); Hemoglobin 13.3 g/dL (14.1-18.0); Lymphocytes # 2.9 K/mm3 (0.7-4.5); Lymphocytes % 43.9 % (10-50); Mean Corpuscular HGB Conc 31.6 g/dL (31.8-35.4); Mean Corpuscular Hemoglobin 29.8 pg (27.0-31.2); Mean Platelet Volume 8.6 fl (7.4-10.4); Monocytes # 0.4 K/mm3 (0.1-1.0); Monocytes % 6.5 % (1.7-9.3); Neutrophils % 46.6 % (37.0-80.0); Platelet Count 247 K/mm3 (142-424); Red Blood Count 4.48 M/mm3 (4.60-6.20); Red Cell Distribution Width 13.9 % (11.5-17.5); White Blood Count 6.5 K/mm3 (4.8-10.8)
[2022-04-12 09:34] LABS: Chloride 102 mmol/L (98-107); Potassium 4.1 mmoL/L (3.5-5.1); Sodium 140 mmol/L (136-145)
[2022-04-12 09:37] LABS: Alanine Aminotransferase 19 U/L (12-78); Albumin Level 4.3 g/dl (3.5-5.0); Albumin/Globulin Ratio 1.3 (1.1-1.8); Alkaline Phosphatase 62 U/L (38-126); Anion Gap 13.1 mEq/L (5-15); Aspartate Amino Transferase 33 U/L (17-59); Bilirubin,Total 0.6 mg/dl (0.2-1.3); Blood Urea Nitrogen 28 mg/dl (9-20); Calcium 9.7 mg/dl (8.4-10.2); Carbon Dioxide 29 mmol/L (22.0-30.0); Creatinine Clearance Estimated 44 mL/min (50-200); Estimated Glomerular Filt Rate 49 ml/min (>60); GFR (African American) 59 ML/MIN (>60); Globulin 3.3 g/dL (1.3-3.2); Glucose 112 mg/dl (74-100); Total Protein,Serum 7.6 g/dl (6.3-8.2)
[2022-04-12 09:38] LABS: Magnesium 1.9 mg/dl (1.6-2.3)
[2022-04-12 09:46] LABS: NT Pro Brain Natriuretic Pep. 310 pg/mL (0-450)
[2022-04-12 09:50] LABS: Troponin I < 0.01 ng/ml (0.00-0.034)
== END 2022-04-12 11:31 | disposition home or self-care (01) ==
PROVIDERS: Emergency Provider Emergency Medicine; PCP Internal Medicine
DX: R42 Dizziness and giddiness (principal); Z79.82 Long term (current) use of aspirin; Z79.899 Other long term (current) drug therapy; Z86.79 Personal history of other diseases of the circulatory system
CPT/HCPCS: 71045; 80053; 83735; 83880; 84484; 85025; 93005; 96365; 99284

== ENCOUNTER → 2022-09-15 07:51 | Outpatient (CLI) | payer MEDICARE, OTHER, SELFPAY ==
--- NOTE | 2022-09-15 07:52 | US_ITS ---
FINAL REPORT CLINICAL HISTORY: family hx of AAA, brother/former smoker. FINDINGS: Limited sonographic images were obtained of the abdomen to evaluate the abdominal aorta and iliac arteries. The abdominal aorta measures up to 1.8 cm in greatest dimension. The iliac arteries are within normal limits. IMPRESSION: No evidence of abdominal aortic aneurysm. Reviewed, Interpreted and Dictated by Warren Gupta III, MD Transcribed by Ekaterina Daily Authenticated and [facility]
== END ==
PROVIDERS: PCP Internal Medicine; Visit Provider Internal Medicine
DX: I48.0 Paroxysmal atrial fibrillation; I10 Essential (primary) hypertension; E78.2 Mixed hyperlipidemia; R94.31 Abnormal electrocardiogram [ECG] [EKG]; Z82.49 Family history of ischemic heart disease and other diseases of the circulatory system; Z87.891 Personal history of nicotine dependence
CPT/HCPCS: 76705